=== PATIENT | male | born 1955 | race Caucasian/White ===

== ENCOUNTER 2021-05-21 08:29 | Day surgery (SDC) | payer MEDICARE, OTHER ==
[~2021-05-21 08:29] MED LIST: Lactated Ringers 1,000 ML IV SCH
[2021-05-21] MEDS ORDERED: Propofol 200 MG/20 ML SDV ONE ×2 (10:03→11:07)
[2021-05-21] MEDS ORDERED: fentaNYL 100 MCG/2 ML SDV ONE (10:03)
[2021-05-21] MEDS ORDERED: Citric Acid/Sodium Citrate Solution 30 ML Cup PO ONE (10:04)
[2021-05-21 11:46] VITALS: BP 119/82; PULSE 57
== END 2021-05-21 12:50 | disposition home or self-care (01) ==
LOC: VM.SDS 08:29
PROVIDERS: ATTEND Family Medicine
DX: Z12.11 Encounter for screening for malignant neoplasm of colon (principal); D12.2 Benign neoplasm of ascending colon; K51.40 Inflammatory polyps of colon without complications; K57.30 Diverticulosis of large intestine without perforation or abscess without bleeding; I10 Essential (primary) hypertension; Z79.899 Other long term (current) drug therapy; F41.9 Anxiety disorder, unspecified; E66.9 Obesity, unspecified; K21.9 Gastro-esophageal reflux disease without esophagitis; Z98.890 Other specified postprocedural states; Z68.30 Body mass index [BMI] 30.0-30.9, adult; Z87.891 Personal history of nicotine dependence
CPT/HCPCS: 00812; 88305; A9270-GY; J2704; J3010; J7120